=== PATIENT | female | born 1945 | race Caucasian/White ===

== ENCOUNTER 2020-04-19 14:30 | Inpatient (IN) | payer MEDICAID ==
[~2020-04-19] VITALS: Ht 162.6 cm; Wt 88.9 kg
[2020-04-19] MEDS ORDERED: LOSA25TA27 PO (14:37)
--- NOTE | 2020-04-19 14:46 | NUR ---
BIB RA 37 FROM HOME,SLIPPED AND FELL LANDING ON HER RIGHT HIP/THIGH AREA , NO BRUISES NOTED , NO COMPLAINS OF PAIN , ATTACHED TO MONITOR , WILL CONTINUE TO MONITOR
--- NOTE | 2020-04-19 14:47 | NUR ---
BP OF 203 / 89 , DENEIS NAUSEA VOMITING DIZZINESS , WILL NOTIFY DR VAZQUEZ
--- NOTE | 2020-04-19 15:23 | NUR ---
IV STARTED AT R FOREARM # 20 , BLOOD COLLECTED , NOTIFIED MD REGARDING HIGH BP OF 200 / 90 MD AWARE .,
[2020-04-19] MEDS ORDERED: ONDANSETRON HCL/PF 4 MG/2 ML VIAL ONE ×2 (16:15→17:51)
[2020-04-19] MEDS: MORPHINE SULFATE INJ 2 MG/ML DISP.SYRIN IV ONE ×3 (16:16→17:54)
[2020-04-19] MEDS: ONDANSETRON HCL/PF - ER 4 MG/2 ML VIAL IV ONE ×3 (16:16→17:54)
[2020-04-19] MEDS ORDERED: MORPHINE SULFATE INJ 4 MG/ML DISP.SYRIN ONE ×2 (16:16→17:51)
--- NOTE | 2020-04-19 16:16 | NUR ---
CALLED [facility]TH[facility] CONSTRUCTION PROJECT ENGINEER. AWAITING THEIR CALL BACK
[2020-04-19 16:22] LABS: BASOPHILS % (AUTO) 0.4 % (0.0-2.0); EOSINOPHILS % (AUTO) 0.4 % (0.0-6.0); HEMATOCRIT 42 % (33-45); HEMOGLOBIN 13.6 g/dL (11.5-14.8); LYMPHOCYTES # (AUTO) 1.7 /CMM (0.8-4.8); MEAN CORPUSCULAR HGB CONC 32 g/dl (31.0-36.0); MEAN CORPUSCULAR VOLUME 87 fL (82-100); MONOCYTES # (AUTO) 0.8 /CMM (0.1-1.30); MONOCYTES % (AUTO) 6.4 % (2.0-12.0); NEUTROPHILS # (AUTO) 9.5 /CMM (1.8-8.9); NEUTROPHILS % (AUTO) 78.8 % (43.0-81.0); PLATELET COUNT (AUTO) 188 /CMM (150-450); RED BLOOD CELL COUNT(AUTO) 4.84 MIL/uL (4.0-5.2); WHITE BLOOD COUNT (AUTO) 12.1 K/uL (4.3-11.0)
[2020-04-19 16:32] LABS: CALCIUM, SERUM 8.6 mg/dL (8.5-10.1); CARBON DIOXIDE 25 mmol/L (21-32); CHLORIDE 104 mmol/L (98-107); CREATININE 0.7 mg/dL (0.6-1.3); GLUCOSE 128 mg/dL (74-106); POTASSIUM 3.7 mmol/L (3.5-5.1); SODIUM SERUM 138 mmol/L (136-145); UREA NITROGEN, BLOOD 17 mg/dL (7-18)
--- NOTE | 2020-04-19 16:32 | NUR ---
HERNANDEZ VIRUS SWAB DONE AND SENT TO LAB
--- NOTE | 2020-04-19 16:36 | NUR ---
CALLED HOUSE SUP FOR MS BED
[2020-04-19 16:45] LABS: BILIRUBIN,DIRECT 0.1 mg/dL (0.0-0.2); BILIRUBIN,TOTAL 0.4 mg/dL (0.2-1.0)
[2020-04-19 16:46] LABS: ALANINE AMINOTRANSFERASE 24 U/L (12-78); ALBUMIN 4.1 g/dL (3.4-5.0); ALKALINE PHOSPHATASE 108 U/L (46-116); ASPARTATE AMINOTRANSFERASE 27 U/L (15-37); TOTAL PROTEIN, SERUM 8.1 g/dL (6.4-8.2)
--- NOTE | 2020-04-19 16:50 | NUR ---
CALLED A FOLLOW UP FOR FISH ROE PROCESSOR [facility]
--- NOTE | 2020-04-19 17:07 | NUR ---
CALLED A FOLLOW UP FOR IP COUNSEL [facility]TH[facility]
[2020-04-19] MEDS ORDERED: LOSARTAN POTASSIUM 25 MG TABLET ONE (17:10)
--- NOTE | 2020-04-19 17:22 | NUR ---
PT REFUSED MORPHINE AND ZOFRAN ORDERED SHE IS NOT CURRENTLY IN PAIN , REQUEASTING BP MEDS OF COZAR 50MG , MD AWARE , COZER 50MG GIVEN , BP IMPROVED , WILL CONTINUE TO MONITOR
[2020-04-19] MEDS ORDERED: LOSARTAN POTASSIUM 25 MG TABLET PO ONE (17:30)
--- NOTE | 2020-04-19 17:54 | NUR ---
MORPHINE 4MG , ZOFRAN 4MG GIVEN IVP , CC OF 6/10 RIGHT LEG PAIN , VSS , WILL CONT INUE TO MONITOR DR BONNER SPOKE WITH ARLEY SHAFFER , ORTHO ACCEPTED THE PT
--- NOTE | 2020-04-19 18:07 | NUR ---
REPORT GIVEN TO ALEJANDRINA FOR CONTINUITY OF CARE , ALL QUESTIONS ANSWERED , WILL CONTINUE TO MONITOR
[2020-04-19] MEDS ORDERED: MAG HYDROX/AL HYDROX/SIMETH 30 ML UDC PO PRN (18:30)
[2020-04-19] MEDS ORDERED: MAGNESIUM HYDROXIDE 30 ML UDC PO PRN (18:30)
[2020-04-19] MEDS ORDERED: Z GUARD REMEDY 2 OZ OINT TP PRN (18:30)
[2020-04-19] MEDS ORDERED: LOSARTAN POTASSIUM 25 MG TABLET PO SCH (18:30)
[2020-04-19] MEDS ORDERED: ONDANSETRON HCL/PF 4 MG/2 ML VIAL IVP PRN (18:30)
--- NOTE | 2020-04-19 18:30 | NUR ---
DR HUNTLEY AT BEDSIDE , EVALUATING AND ASSESSING THE PT
--- NOTE | 2020-04-19 18:40 | NUR ---
ARLEY SHAFFER AT BEDSIDE ASSESSING THE PT , EXPLAINING PLAN OF CARE
--- NOTE | 2020-04-19 19:30 | NUR ---
ADMISSION NOTE REPORT RECIEVED FROM DYAN AMBROSE. PATIENT BROUGHT TO ROOM BY PLUMBING ENGINEERING DRAFTSPERSON. ADMITTED TO [facility] DR. MCMAHAN FOR RIGHT HIP FRACTURE. PATIENT KITTITIAN SPEAKING TRANSLATION ASSISTED WITH ZURDO VILLEGAS. REPORTS THAT SHE HAD MECHANICAL FALL AND LANDED ON RIGHT HIP. REPORTS PAIN IN HIP IS ONLY PRESENT WHEN MOVING. REVIEWED PAIN MANAGEMENT PLAN WITH PATIENT. PATIENT ORIENTED TO ROOM. CALL LIGHT PLACED WITHIN REACH. SRX2. BED DOWN AND LOCKED. PATIENT WAS SEEN BY ORTHO IN ER. PLAN IS TO HAVE SURGERY ON WEDNESDAY.
--- NOTE | 2020-04-19 19:33 | NUR ---
PT TRANSFERED TO M/S BED VIA [facility]. PT STABLE.
[2020-04-19 20:00] VITALS: BP 125/54
[2020-04-19] MEDS ORDERED: LOSA1TAB36 PO (21:25)
[2020-04-19] MEDS ORDERED: ASPI-605 PO (21:25)
[2020-04-19] MEDS ORDERED: AMLO5TAB4 PO (21:25)
--- NOTE | 2020-04-19 21:36 | NUR ---
SPOKE WITH PATIENTS LYDIA AND SHARI FLOREZ AND SHE WAS ABLE TO CLARIFY PATIENTS HOME MEDICATIONS. MED REC UPDATED. DROPPED OFF PATIENT MEDICAITONS PLACED IN PHARMACY BAG AND SENT TO PHARMACY.
--- NOTE | 2020-04-19 21:40 | NUR ---
ADMISSION ASSESSMENT PERFORMED. TRANSLATION ASSISTED BY ZURDO VILLEGAS. ALSO SPOKE TO PATIENTS DAUGHTER LAUREN WITH DETAILS WITH PATIENTS PERMISSION.
[2020-04-19] MEDS: ZOLPIDEM TARTRATE 5 MG TABLET PO PRN (21:55)
--- NOTE | 2020-04-20 02:00 | NUR ---
CONSENT FOR SURGERY SIGNED. CONSENT FOR ANESTHESIA SIGNED, CONSENT FOR BLOOD SIGNED. PT OFFERED PROFESSIONAL TRANSLATION VIA TELEPHONE PRODUCTION CONTROL SUPERVISOR BUT REFUSED. TRANSLATION PROVIDED BY ZURDO VILLEGAS.
[2020-04-20] MEDS: MORPHINE SULFATE INJ 2 MG/ML DISP.SYRIN IV PRN ×2 (02:07→08:42)
--- NOTE | 2020-04-20 06:43 | NUR ---
RN PM CLOSING NOTE. PATIENT IN BED A/OX4 ANGUILLAN SPEAKING ONLY, REPORTS PAIN TO RIGHT HIP BUT ONLY UPON MOVEMENT. PATIENT ABLE TO MOVE IN BED INDEPENDENTLY SCD ARE ON BLE. BED DOWN CALL LIGHT IN REACH. SRX2. WILL ENDORSE TO ONCOMING SHIFT.
[2020-04-20 07:11] LABS: BASOPHILS % (AUTO) 0.4 % (0.0-2.0); EOSINOPHILS % (AUTO) 0.3 % (0.0-6.0); HEMATOCRIT 39 % (33-45); HEMOGLOBIN 12.7 g/dL (11.5-14.8); LYMPHOCYTES # (AUTO) 1.7 /CMM (0.8-4.8); LYMPHOCYTES % (AUTO) 17.1 % (20.0-44.0); MEAN CORPUSCULAR HGB CONC 32 g/dl (31.0-36.0); MEAN CORPUSCULAR VOLUME 87 fL (82-100); MONOCYTES % (AUTO) 10.4 % (2.0-12.0); NEUTROPHILS # (AUTO) 7.1 /CMM (1.8-8.9); NEUTROPHILS % (AUTO) 71.8 % (43.0-81.0); PLATELET COUNT (AUTO) 170 /CMM (150-450); RED BLOOD CELL COUNT(AUTO) 4.52 MIL/uL (4.0-5.2); WHITE BLOOD COUNT (AUTO) 9.9 K/uL (4.3-11.0)
[2020-04-20 07:37] LABS: CALCIUM, SERUM 8.3 mg/dL (8.5-10.1); CREATININE 0.8 mg/dL (0.6-1.3); MAGNESIUM 2.3 mg/dL (1.8-2.4); PHOSPHORUS 3.9 mg/dL (2.5-4.9); POTASSIUM 3.7 mmol/L (3.5-5.1)
[2020-04-20 08:00] VITALS: BP 164/68
[2020-04-20] MEDS: LOSARTAN/HCTZ 50-12.5MG/ 1 EA TABLET PO SCH ×2 (08:42→20:52)
[2020-04-20] MEDS: AMLODIPINE BESYLATE 5 MG TABLET PO SCH (08:43)
[2020-04-20 16:00] VITALS: BP 114/50
--- NOTE | 2020-04-20 18:30 | NUR ---
MS RN NOTES PATIENT IN BED RESTING NO SOB OR ACUTE DISTRESS NOTED. ALL DUE MEDICATIONS ADMINISTERED. ALL NEEDS MET. PATIENTS PAIN CONTROLLED WITH MEDICATIONS. NO ACUTE CHANGES NOTED DURING AM SHIFT. WILL ENDORSE CARE TO PM SHIFT.
--- NOTE | 2020-04-20 19:30 | NUR ---
ms damian initial notes received report from am nurse and seen pt in bed awake on semi fowlers position with side rails x2 up. Denies any pain or any discomfort. pt also aware of her surgery karina but she requested to OR personnel to call her daughter before the procedure started . pt also requested to have sleep medication tonight. kept her warm and comfortable at all times. will continue monitoring place call light at reach.
[2020-04-20 20:00] VITALS: BP 142/69
[2020-04-20] MEDS: ASPIRIN EC 81 MG TABLET.DR PO SCH (21:04)
[2020-04-20] MEDS: ZOLPIDEM TARTRATE 5 MG TABLET PO PRN (21:17)
--- NOTE | 2020-04-20 21:52 | NUR ---
ms power plant technician notes routine meds given as well as her sleep medication as requested by the pt earlier. educate for possible side effect. safety precaution applied. kept her warm and comfortable at all times. will continue monitoring. call light at reach.
[2020-04-21] VITALS (11 sets, daily range): BP systolic 112–137; BP diastolic 52–82
[2020-04-21 06:47] LABS: BASOPHILS % (AUTO) 0.4 % (0.0-2.0); EOSINOPHILS % (AUTO) 1.1 % (0.0-6.0); HEMATOCRIT 40 % (33-45); HEMOGLOBIN 12.9 g/dL (11.5-14.8); LYMPHOCYTES # (AUTO) 1.7 /CMM (0.8-4.8); LYMPHOCYTES % (AUTO) 18.7 % (20.0-44.0); MEAN CORPUSCULAR HGB CONC 32 g/dl (31.0-36.0); MEAN CORPUSCULAR VOLUME 87 fL (82-100); MONOCYTES # (AUTO) 1.1 /CMM (0.1-1.30); MONOCYTES % (AUTO) 11.8 % (2.0-12.0); NEUTROPHILS # (AUTO) 6.3 /CMM (1.8-8.9); PLATELET COUNT (AUTO) 157 /CMM (150-450); RED BLOOD CELL COUNT(AUTO) 4.61 MIL/uL (4.0-5.2); WHITE BLOOD COUNT (AUTO) 9.3 K/uL (4.3-11.0)
[2020-04-21 07:13] LABS: CALCIUM, SERUM 8.8 mg/dL (8.5-10.1); CREATININE 0.7 mg/dL (0.6-1.3); POTASSIUM 3.3 mmol/L (3.5-5.1)
--- NOTE | 2020-04-21 07:26 | NUR ---
ms assembly department supervisor closing notes pt remains sleeping , breathing even and non-labored, not in any discomfort. all due meds given and all needs met. stable ge the night and slept well. kept her warm and comfortable at all times. bed in low and lock in position with side rails x2 up . place call light at reach. Endorse to am nurse Mayelin for continuity of care.
[2020-04-21] MEDS ORDERED: MIDAZOLAM HCL 2 MG/2ML VIAL ONE (07:53)
[2020-04-21] MEDS ORDERED: FENTANYL PF 100MCG/2ML AMPUL ONE (07:53)
[2020-04-21] MEDS ORDERED: BUPIVACAINE 0.5 % PF 150 MG/30 ML VIAL ONE (07:56)
[2020-04-21] MEDS ORDERED: BACITRACIN 50000 UNITS/VIAL ONE (07:56)
--- NOTE | 2020-04-21 08:14 | NUR ---
MS RN NOTES PATIENT TRANSFERRED TO OR FOR SCHEDULED SURGERY.
[2020-04-21] MEDS ORDERED: POTASSIUM CL. PREMIX PERIPHER. 50 ML IV SCH (08:30)
[2020-04-21] MEDS: LOSARTAN/HCTZ 50-12.5MG/ 1 EA TABLET PO SCH ×2 (09:00→21:00)
[2020-04-21] MEDS: AMLODIPINE BESYLATE 5 MG TABLET PO SCH (09:00)
[2020-04-21] MEDS ORDERED: POTASSIUM CHLORIDE 10 MEQ TABLET.SA PO ONE (12:30)
[2020-04-21] MEDS: ANCEF 1 GM/50 ML D5W IV SCH ×2 (16:33)
--- NOTE | 2020-04-21 19:32 | NUR ---
ms rn opening note received patient in bed. a/ox3. Japanese speaking , able to make basic needs known. tolerating room air, respirations are even and unlabored. no s/s sob noted. no c/o pain at this time. iv access in RFA#20 patent and saline locked. bed is low and locked, hob elevated in semi to high fowlers, side rials up x2. call light within reach. will continue to monitor.
--- NOTE | 2020-04-21 19:35 | NUR ---
MS RN NOTES PATIENT IN BED RESTING NO SOB OR ACUTE DISTRESS NOTED. NO ACUTE CHANGES NOTED. ALL DUE MEDICATIONS ADMINISTERED. PAIN MANAGED WITH MEDICATIONS. PATIENT HAD PT EVALUATION AFTER SURGERY. TOLERATED WELL. ALL NEEDS MET. ENDORSED CARE TO PM SHIFT.
[2020-04-21] MEDS: ASPIRIN EC 81 MG TABLET.DR PO SCH (21:08)
[2020-04-21] MEDS: HYDROCODONE/APAP 5/325MG 1 EACH TABLET PO PRN (21:09)
--- NOTE | 2020-04-21 21:09 | NUR ---
ms rn ote administered prn norco 5/325 for pain 10 when patient moves. will continue to monitor.
[2020-04-22] MEDS: ANCEF 1 GM/50 ML D5W IV SCH ×2 (00:08)
--- NOTE | 2020-04-22 07:08 | NUR ---
ms rn closing note patient in bed. a/ox3. tolerating room air, respirations are even and unlabored. no sob noted. managed pain with norco 5/325 but states she is in pain right now. iv access maintained in RFA#20 patent and saline locked. bed remains low and locked, hob elevated in semi to high fowlers, side rials up x2. call light within reach. will endorse to next shift
[2020-04-22 07:20] LABS: BASOPHILS % (AUTO) 0.1 % (0.0-2.0); HEMATOCRIT 35 % (33-45); HEMOGLOBIN 11.1 g/dL (11.5-14.8); LYMPHOCYTES # (AUTO) 1.5 /CMM (0.8-4.8); LYMPHOCYTES % (AUTO) 9.6 % (20.0-44.0); MEAN CORPUSCULAR HGB CONC 32 g/dl (31.0-36.0); MEAN CORPUSCULAR VOLUME 87 fL (82-100); MONOCYTES # (AUTO) 1.4 /CMM (0.1-1.30); MONOCYTES % (AUTO) 9.1 % (2.0-12.0); NEUTROPHILS # (AUTO) 12.6 /CMM (1.8-8.9); NEUTROPHILS % (AUTO) 81.2 % (43.0-81.0); PLATELET COUNT (AUTO) 162 /CMM (150-450); RED BLOOD CELL COUNT(AUTO) 3.99 MIL/uL (4.0-5.2); WHITE BLOOD COUNT (AUTO) 15.5 K/uL (4.3-11.0)
--- NOTE | 2020-04-22 07:30 | NUR ---
RN OPEN NOTES PATIENT IS A/O X 4. PATIENT IS CALM AND COOPERATIVE WITH NO SIGNS OF DISTRESS IN ROOM AIR. IN R FA #20G SL INTACT. PILLOW UNDER RIGHT LEG FOR COMFORT. PATIENT C/O PAIN GAVE PAIN MEDICATION. BED IS IN LOW POSITION AND LOCKED WITH SIDE RAILS UP X 2 FOR SAFETY. CALL LIGHT WITHIN REACH. WILL CONTINUE TO MONITOR.
[2020-04-22 07:33] LABS: CALCIUM, SERUM 8.7 mg/dL (8.5-10.1); POTASSIUM 4.2 mmol/L (3.5-5.1)
[2020-04-22 08:00] VITALS: BP 112/54
[2020-04-22] MEDS: AMLODIPINE BESYLATE 5 MG TABLET PO SCH (09:00)
[2020-04-22] MEDS: HYDROCODONE/APAP 5/325MG 1 EACH TABLET PO PRN ×3 (09:19→21:06)
[2020-04-22] MEDS: LOSARTAN/HCTZ 50-12.5MG/ 1 EA TABLET PO SCH ×2 (09:22→21:00)
[2020-04-22] MEDS: ENOXAPARIN SODIUM 40 MG/0.4 ML DISP.SYRIN SQ SCH (09:28)
[2020-04-22 16:00] VITALS: BP 110/50
--- NOTE | 2020-04-22 19:30 | NUR ---
MS RN OPEN NOTES PATIENT IS LAYING IN BED. A/O X4. ON RA, NO SOB/ ACUTE RESPIRATORY DISTRESS NOTED. BED IS IN LOWEST LOCKED POSITION WITH SIDE RAILS UP X2, SEMI FOWLERS. CALL LIGHT IS WITHIN REACH. WILL CONTINUE TO MONITOR.
--- NOTE | 2020-04-22 19:32 | NUR ---
RN CLOSING NOTES PATIENT IS A/O X 4. PATIENT IS CALM AND COOPERATIVE WITH NO SIGNS OF DISTRESS IN ROOM AIR. IN R FA #20G SL INTACT. PILLOW UNDER RIGHT LEG FOR COMFORT. PATIENT REMAINED STABLE THROUGH OUT SHIFT. PATIENT KEPT CLEAN AND DRY. ALL NEEDS, CARE, TREATMENT AND MEDICATIONS ADMINISTERED ANTICIPATED PER ORDER. BED IS IN LOW POSITION AND LOCKED WITH SIDE RAILS UP X 2 FOR SAFETY. CALL LIGHT WITHIN REACH. WILL ENDORSE TO THE NEXT NURSE SHIFT.
[2020-04-22 20:00] VITALS: BP 118/55
[2020-04-22] MEDS: ASPIRIN EC 81 MG TABLET.DR PO SCH (21:05)
--- NOTE | 2020-04-23 06:22 | NUR ---
MS RN CLOSE NOTES PATIENT IS LAYING IN BED. A/O X4. ON RA, NO SOB/ ACUTE RESPIRATORY DISTRESS NOTED. IV ON R HAND #20G IS PATENT AND INTACT. APPEARS COMFORTABLE/ NO COMPLAINTS OF PAIN AT THE MOMENT. BED IS IN LOWEST LOCKED POSITION WITH SIDE RAILS UP X3, SEMI FOWLERS. CALL LIGHT IS WITHIN REACH. WILL ENDORSE TO AM NURSE.
--- NOTE | 2020-04-23 07:32 | NUR ---
MS/RN Opening note Patient received from cnc machinist 2nd shift. A/O X4, Bhutanese speaking only, SPINNING MULE OPERATOR at bedside providing translation. Denies any pain at this time, only complaint being unable to sleep last night due to television being on from other patient in the room. Will speak with charge nurse to try and to arrange room switch. Safety measures in place, call light within reach. Will continue to monitor and ensure safety.
[2020-04-23 08:00] VITALS: BP 128/56
[2020-04-23] MEDS: AMLODIPINE BESYLATE 5 MG TABLET PO SCH (08:24)
[2020-04-23] MEDS: HYDROCODONE/APAP 5/325MG 1 EACH TABLET PO PRN ×2 (08:24→21:19)
[2020-04-23] MEDS: LOSARTAN/HCTZ 50-12.5MG/ 1 EA TABLET PO SCH ×2 (08:24→21:00)
[2020-04-23] MEDS: ENOXAPARIN SODIUM 40 MG/0.4 ML DISP.SYRIN SQ SCH (08:28)
--- NOTE | 2020-04-23 09:00 | NUR ---
MS/RN S/B Ortho Seen by ortho - dressing changed.
--- NOTE | 2020-04-23 10:04 | NUR ---
MS/RN S/B Deo Arias BACKGROUND CHECK COORDINATOR Seen by BACKGROUND CHECK COORDINATOR - continue to work with physical therapy, discharge planning for tomorrow to home.
--- NOTE | 2020-04-23 12:38 | NUR ---
MS/RN Constipation Patient complaining of constipation since surgery, last BM being 04/20. Warm prune juice given.
[2020-04-23 14:36] LABS: BASOPHILS # (AUTO) 0.1 /CMM (0.0-0.2); BASOPHILS % (AUTO) 0.7 % (0.0-2.0); EOSINOPHILS % (AUTO) 1.2 % (0.0-6.0); HEMATOCRIT 32 % (33-45); HEMOGLOBIN 10.3 g/dL (11.5-14.8); LYMPHOCYTES # (AUTO) 1.4 /CMM (0.8-4.8); LYMPHOCYTES % (AUTO) 13.6 % (20.0-44.0); MEAN CORPUSCULAR HGB CONC 32 g/dl (31.0-36.0); MEAN CORPUSCULAR VOLUME 87 fL (82-100); MONOCYTES # (AUTO) 1.1 /CMM (0.1-1.30); MONOCYTES % (AUTO) 10.1 % (2.0-12.0); NEUTROPHILS # (AUTO) 7.8 /CMM (1.8-8.9); NEUTROPHILS % (AUTO) 74.4 % (43.0-81.0); PLATELET COUNT (AUTO) 168 /CMM (150-450); RED BLOOD CELL COUNT(AUTO) 3.63 MIL/uL (4.0-5.2); WHITE BLOOD COUNT (AUTO) 10.5 K/uL (4.3-11.0)
[2020-04-23 14:57] LABS: CALCIUM, SERUM 8.2 mg/dL (8.5-10.1); POTASSIUM 3.7 mmol/L (3.5-5.1)
[2020-04-23 15:58] VITALS: BP 130/50
[2020-04-23 16:00] VITALS: BP 130/50
--- NOTE | 2020-04-23 18:23 | NUR ---
MS/RN End note Patient remains in stable condition. Discharge planning for tomorrow, home with home health. bean roaster coordinating with patient's daughter to ensure all needs are meet and to ensure safe discharge. Prune juice given as no bowel movement since admission with good result. Dressing dry and intact, no drainage noted, continue to deny pain. Will endore to cardiology technologist.
--- NOTE | 2020-04-23 19:29 | NUR ---
MS RN OPENING NOTES PATIENT AWAKE IN BED. A/OX4. PRIMARY LANGUAGE MEXICAN. ON RA. NO C/O SOB OR PAIN. PATIENT C/O SLIGHT NAUSEA. PRN ZOFRAN 4MG GIVEN AT 1915 PER PATIENT'S REQUEST. IV PRESENT ON RIGHT HAND, SIZE 20, INTACT & PATENT, HEP LOCKED. RIGHT HIP DRESSING DRY AND INTACT. SAFETY MEASURES IN PLACE AND PATIENT'S NEEDS MET. BED LOCKED, HOB ELEVATED, SIDE RAILS X2, CALL LIGHT WITHIN REACH. WILL CONTINUE TO MONITOR.
[2020-04-23 20:00] VITALS: BP 139/51
[2020-04-23 20:30] VITALS: BP 139/51
[2020-04-23] MEDS: ACETAMINOPHEN 325 MG TABLET PO PRN (20:45)
--- NOTE | 2020-04-23 20:45 | NUR ---
MS RN NOTES PATIENT'S TEMPERATURE 99.8. COOLING MEASURES PROVIDED AND PRN TYLENOL 650 MG PO GIVEN. WILL CONTINUE TO MONITOR.
[2020-04-23] MEDS: ASPIRIN EC 81 MG TABLET.DR PO SCH (21:19)
--- NOTE | 2020-04-23 23:00 | NUR ---
MS RN NOTES PATIENT'S TEMP 99.1
--- NOTE | 2020-04-24 07:41 | NUR ---
MS RN CLOSING NOTES PATIENT AWAKE IN BED. A/OX4. STABLE ON RA. NO C/O SOB OR PAIN. IV PRESENT ON RIGHT HAND, SIZE 20, INTACT & PATENT, HEP LOCKED. RIGHT HIP DRESSING DRY AND INTACT. SAFETY MEASURES IN PLACE AND PATIENT'S NEEDS MET. BED LOCKED, HOB ELEVATED, SIDE RAILS X2, CALL LIGHT WITHIN REACH. ENDORSED TO DAY SHIFT RN PLAN OF CARE.
--- NOTE | 2020-04-24 07:48 | NUR ---
MS RN OPENING NOTES PATIENT AWAKE IN BED ECUADOREAN SPEAKING. A/OX4. STABLE ON RA. NO C/O SOB OR PAIN. IV PRESENT ON RIGHT HAND, SIZE 20, INTACT & PATENT, SL. RIGHT HIP DRESSING DRY AND INTACT. SAFETY MEASURES IN PLACE AND PATIENT'S NEEDS MET. BED LOCKED, HOB ELEVATED, SIDE RAILS X2, CALL LIGHT WITHIN REACH. ENDORSED TO DAY SHIFT RN PLAN OF CARE.
[2020-04-24 08:00] VITALS: BP 147/66
[2020-04-24] MEDS: MORPHINE SULFATE INJ 2 MG/ML DISP.SYRIN IV PRN (08:20)
[2020-04-24] MEDS: LOSARTAN/HCTZ 50-12.5MG/ 1 EA TABLET PO SCH ×2 (08:50→21:00)
[2020-04-24] MEDS: AMLODIPINE BESYLATE 5 MG TABLET PO SCH (08:50)
[2020-04-24] MEDS: ENOXAPARIN SODIUM 40 MG/0.4 ML DISP.SYRIN SQ SCH (09:00)
[2020-04-24 09:31] LABS: CALCIUM, SERUM 8.8 mg/dL (8.5-10.1); CREATININE 0.7 mg/dL (0.6-1.3); POTASSIUM 3.7 mmol/L (3.5-5.1)
[2020-04-24 09:33] LABS: BASOPHILS # (AUTO) 0.1 /CMM (0.0-0.2); BASOPHILS % (AUTO) 0.6 % (0.0-2.0); EOSINOPHILS % (AUTO) 3.1 % (0.0-6.0); HEMATOCRIT 32 % (33-45); HEMOGLOBIN 10.4 g/dL (11.5-14.8); LYMPHOCYTES % (AUTO) 22.1 % (20.0-44.0); MEAN CORPUSCULAR HGB CONC 33 g/dl (31.0-36.0); MEAN CORPUSCULAR VOLUME 87 fL (82-100); MONOCYTES % (AUTO) 11.5 % (2.0-12.0); NEUTROPHILS # (AUTO) 5.6 /CMM (1.8-8.9); NEUTROPHILS % (AUTO) 62.7 % (43.0-81.0); PLATELET COUNT (AUTO) 179 /CMM (150-450); RED BLOOD CELL COUNT(AUTO) 3.64 MIL/uL (4.0-5.2); WHITE BLOOD COUNT (AUTO) 8.9 K/uL (4.3-11.0)
[2020-04-24] MEDS ORDERED: ONDA4TAB5 PO (11:18)
[2020-04-24] MEDS ORDERED: HYDR-4384 PO (11:18)
[2020-04-24] MEDS ORDERED: ASPI-869 PO ×3 (11:18→11:39)
[2020-04-24] MEDS: ACETAMINOPHEN 325 MG TABLET PO PRN (13:30)
--- NOTE | 2020-04-24 13:30 | NUR ---
MS/ RN NOTES PATIENT'S TEMPERATURE 100.3. COOLING MEASURES PROVIDED AND PRN TYLENOL 650 MG PO GIVEN. WILL CONTINUE TO MONITOR.
[2020-04-24 16:00] VITALS: BP 136/62
--- NOTE | 2020-04-24 16:30 | NUR ---
MS RN NOTES PATIENT'S RE CHECK TEMPERATURE 97.8.TYLENOL 650 MG EFFECTIVE. WILL CONTINUE TO MONITOR.
--- NOTE | 2020-04-24 18:57 | NUR ---
MS RN CLOSING NOTES PATIENT AWAKE IN BED. A/OX4. STABLE ON RA. NO C/O SOB OR PAIN. IV PRESENT ON RIGHT HAND, SIZE 20, INTACT & PATENT, HEP LOCKED. RIGHT HIP DRESSING DRY AND INTACT.MEDICATED WITH TYLENOL 650 ORDER FOR TEM 100.3 MEDS EFFECTIVE TEMP ESSIE TO 97.8. SAFETY MEASURES IN PLACE AND PATIENT'S NEEDS MET. BED LOCKED, HOB ELEVATED, SIDE RAILS X2, CALL LIGHT WITHIN REACH. ENDORSED TO DAY SHIFT RN PLAN OF CARE.
--- NOTE | 2020-04-24 19:39 | NUR ---
MS RN OPENING NOTES PATIENT AWAKE IN BED. A/OX4. ON RA. NO C/O SOB OR PAIN. IV PRESENT ON RIGHT HAND, SIZE 20, INTACT & PATENT, HEP LOCKED. RIGHT HIP DRESSING DRY AND INTACT. SAFETY MEASURES IN PLACE AND PATIENT'S NEEDS MET. BED LOCKED, HOB ELEVATED, SIDE RAILS X2, CALL LIGHT WITHIN REACH. WILL CONTINUE TO MONITOR
[2020-04-24 20:00] VITALS: BP 133/57
[2020-04-24] MEDS: ASPIRIN EC 81 MG TABLET.DR PO SCH (21:15)
[2020-04-24] MEDS: HYDROCODONE/APAP 5/325MG 1 EACH TABLET PO PRN (21:15)
[2020-04-24] MEDS: ZOLPIDEM TARTRATE 5 MG TABLET PO PRN (22:30)
--- NOTE | 2020-04-25 06:33 | NUR ---
MS RN CLOSING NOTES PATIENT AWAKE IN BED. A/OX4. STABLE ON RA. NO C/O SOB OR PAIN. IV PRESENT ON RIGHT HAND, SIZE 20, INTACT & PATENT, HEP LOCKED. RIGHT HIP DRESSING DRY AND INTACT. SAFETY MEASURES IN PLACE AND PATIENT'S NEEDS MET. BED LOCKED, HOB ELEVATED, SIDE RAILS X2, CALL LIGHT WITHIN REACH. WILL ENDORSE TO DAY SHIFT RN PLAN OF CARE.
[2020-04-25 08:00] VITALS: BP 140/73
--- NOTE | 2020-04-25 08:00 | NUR ---
RN NOTES RECEIVED PATIENT IN THE BED A/O X3, LATVIAN SPEAKER. PATIENT HAS NO ACUTE RESPIRATORY DISTRESS, REFUSED PAIN AT THIS TIME. DRESSING INTACT ON LEFT HIP. ADMINISTERED SCHEDULED MEDICATION, V/S WNL. CALL LIGHT WITHIN TO REACH. PATIENT WILL DISCHARGE HOME TODAY, AFTER SEEING PT. CONTINUED MONITORING.
[2020-04-25] MEDS: AMLODIPINE BESYLATE 5 MG TABLET PO SCH (09:29)
[2020-04-25 09:30] VITALS: BP 140/73
[2020-04-25] MEDS: LOSARTAN/HCTZ 50-12.5MG/ 1 EA TABLET PO SCH (09:30)
[2020-04-25] MEDS: ENOXAPARIN SODIUM 40 MG/0.4 ML DISP.SYRIN SQ SCH (09:35)
--- NOTE | 2020-04-25 11:00 | NUR ---
rn notes patient will discharge home with home health.
--- NOTE | 2020-04-25 12:00 | NUR ---
Social service consult requested by Deo in regards to pt needing a DMV handicap placard form signed. Per MD notes, pt is a 75-year-old female brought in by EMS after mechanical slip and fall onto her right hip/thigh. SURVEY SUPERINTENDENT conducted chart review and met with the pt bedside. Pt is predominantly Kiswahili speaking. BAKARI Amador assisted SW in translation. Pt is alert and oriented x 4 with appropriate affect. Pt gave SW the DMV form and requested it needing a signature. The form had been completed by pt's daughter David. SURVEY SUPERINTENDENT went over the form with the pt and informed her the doctor needs to sign the form. SURVEY SUPERINTENDENT contacted pt's doctor URGENT CARE TECHNICIAN Deo and informed him that he needs to sign the form. Per Deo he will come by pt's room and sign the form. SURVEY SUPERINTENDENT updated pt with aforementioned information.
[2020-04-25] MEDS: HYDROCODONE/APAP 5/325MG 1 EACH TABLET PO PRN (13:37)
--- NOTE | 2020-04-25 13:37 | NUR ---
rn notes patient was complaining of pain on left hip 03/06 per patient request, v/s taken bp127/68,p66, r-18.
--- NOTE | 2020-04-25 15:47 | NUR ---
TUMBLER TENDER NOTES PATIENT DISCHARGE HOME WITH HOME HEALTH AT THIS TIME. PATIENT A/O X3, PARAGUAYAN SPEAKER, V/S WNL, REFUSED PAIN, DRESSING INTACT . MED RECONCILIATION AND DISCHARGE ORDER REVIEWED AND EXPLAINED TO THE PATIENT AND DAUGHTER. PATIENT VERBALIZED UNDERSTANDING. PATIENT SIGN PAPERWORK, ALL PAPERWORK WITH PRESCRIPTION HANDED TO THE PATIENT. PATIENT WILL FOLLOW SURGEON ON ONE WEEK. BELONGING WITH THE PATIENT. ESCORTED PATIENT TO THE LOBBY FOR SAFETY. PATIENT PETS SALESPERSON BY DAUGHTER NAME FIGUEROA PHONE # [phone].
== END 2020-04-25 15:45 | disposition home health service (06) | DRG 308 ==
LOC: ER 14:31 → MED 17:41
PROVIDERS: ADMIT Family Medicine; ATTEND Nurse Practitioner Acute Care
PROC: 0QS606Z Reposition Right Upper Femur with Intramedullary Internal Fixation Device, Open Approach (ICD-10-PCS; principal; 2020-04-21)
DX: S72.141A Displaced intertrochanteric fracture of right femur, initial encounter for closed fracture (principal); Y92.009 Unspecified place in unspecified non-institutional (private) residence as the place of occurrence of the external cause; E87.6 Hypokalemia; R73.9 Hyperglycemia, unspecified; W01.0XXA Fall on same level from slipping, tripping and stumbling without subsequent striking against object, initial encounter; Z79.82 Long term (current) use of aspirin; Z87.891 Personal history of nicotine dependence; Z82.49 Family history of ischemic heart disease and other diseases of the circulatory system; Z79.899 Other long term (current) drug therapy; D72.829 Elevated white blood cell count, unspecified; E66.9 Obesity, unspecified; I10 Essential (primary) hypertension; Z68.33 Body mass index [BMI] 33.0-33.9, adult
CPT/HCPCS: 36415; 71045-TC; 73501; 73502; 73552; 80048-TC; 80061-TC; 80076-TC; 83735-TC; 84100-TC; 84484-TC; 85025-TC; 85730-TC; 86850-TC; 87081-TC; 93307-TC; 97110-TC; 97116-TC; 97530-TC; 97535-TC; A6209; A6407; C1713; G0378; J0690; J1650; J2250; J2270; J2405; J3010; J3480; J3490; J7050; J7060

== ENCOUNTER 2025-04-07 13:31 | Inpatient (IN) | payer MEDICAID ==
[~2025-04-07] VITALS: Ht 154.9 cm; Wt 91.6 kg
[~2025-04-07 13:31] MED LIST: AMLO5TAB4 PO; ASPI-869 PO; HYDR-4384 PO; LOSA1TAB36 PO; ONDA4TAB5 PO
[2025-04-07 13:57] LABS: PLATELET COUNT (AUTO) 155 K/uL (150-450); RED BLOOD CELL COUNT(AUTO) 4.52 MIL/uL (4.0-5.2); RED CELL DISTRIBUTION WIDTH 15.3 % (11.5-15.0); WHITE BLOOD COUNT (AUTO) 12.0 K/uL (4.3-11.0)
[2025-04-07 14:06] LABS: CALCIUM, SERUM 9.0 mg/dL (8.5-10.1); CREATININE 1.0 mg/dL (0.6-1.3); SODIUM SERUM 141 mmol/L (136-145); UREA NITROGEN, BLOOD 27 mg/dL (7-18)
[2025-04-07 14:11] LABS: INR 1.06 (0.91-1.10)
[2025-04-07 14:20] LABS: ASPARTATE AMINOTRANSFERASE 54 U/L (15-37); NT-PRO BNP 461 pg/mL (0-125); TOTAL PROTEIN, SERUM 7.5 g/dL (6.4-8.2)
[2025-04-07] MEDS: IV NS 0.9% 500 ML BAG IV ONE (14:23)
[2025-04-07] MEDS ORDERED: ASPIRIN 325 MG TABLET ONE (17:51)
[2025-04-07] MEDS: ASPIRIN EC 325 MG TABLET.DR PO ONE (17:54)
[2025-04-07] MEDS ORDERED: MORPHINE SULFATE INJ 2 MG/ML DISP.SYRIN IV PRN (18:00)
[2025-04-07] MEDS ORDERED: ONDANSETRON HCL/PF 4 MG/2 ML VIAL IVP PRN (18:00)
[2025-04-07] MEDS ORDERED: hydrALAZINE HCL IV 20 MG VIAL IV PRN (18:00)
[2025-04-07] MEDS ORDERED: ACETAMINOPHEN 325 MG TABLET PO PRN (18:00)
[2025-04-07] MEDS ORDERED: [UNRECOGNIZED DRUG - OTHER] PO (18:03)
[2025-04-07] MEDS ORDERED: TELM80TA2 PO (18:03)
[2025-04-07] MEDS ORDERED: OMEP20CA15 PO (18:03)
[2025-04-07] MEDS ORDERED: HYDR12.55 PO (18:03)
[2025-04-07 18:20] LABS: LDL 126 mg/dL (0-99)
[2025-04-07 20:00] VITALS: BP 144/63; TEMP 98.4; O2SAT 99
[2025-04-07] MEDS: HYDROCHLOROTHIAZIDE 25 MG TABLET PO SCH (21:33)
[2025-04-07] MEDS: LOSARTAN POTASSIUM 50 MG TABLET PO SCH (21:34)
[2025-04-07] MEDS: HEPARIN SODIUM, PORCINE 5000 UNITS/1 ML VIAL SQ SCH (21:35)
[2025-04-08] VITALS (8 sets, daily range): BP systolic 111–158; BP diastolic 58–71; TEMP 97.7–98.6; O2SAT 96–100
[2025-04-08 07:07] LABS: PLATELET COUNT (AUTO) 117 K/uL (150-450); RED BLOOD CELL COUNT(AUTO) 4.11 MIL/uL (4.0-5.2); RED CELL DISTRIBUTION WIDTH 14.8 % (11.5-15.0); WHITE BLOOD COUNT (AUTO) 7.4 K/uL (4.3-11.0)
[2025-04-08 08:29] LABS: ASPARTATE AMINOTRANSFERASE 48.0 U/L (15-37); CALCIUM, SERUM 8.8 mg/dL (8.5-10.1); CREATININE 0.8 mg/dL (0.6-1.3); PHOSPHORUS 4.3 mg/dL (2.5-4.9); SODIUM SERUM 142.0 mmol/L (136-145); TOTAL PROTEIN, SERUM 6.6 g/dL (6.4-8.2); UREA NITROGEN, BLOOD 26.0 mg/dL (7-18)
[2025-04-08] MEDS: AMLODIPINE BESYLATE 5 MG TABLET PO SCH (08:29)
[2025-04-08] MEDS: ASPIRIN EC 325 MG TABLET.DR PO SCH (08:39)
[2025-04-08] MEDS ORDERED: PANTOPRAZOLE 40 MG TABLET.DR PO PRN (10:00)
[2025-04-08] MEDS: HYDROCHLOROTHIAZIDE 25 MG TABLET PO SCH (10:19)
[2025-04-08] MEDS ORDERED: LOSARTAN POTASSIUM 50 MG TABLET PO SCH (18:00)
== END 2025-04-08 11:54 | disposition home or self-care (01) | DRG 48 ==
LOC: ER 13:33 → TELE1 18:48
PROVIDERS: ADMIT Internal Medicine; ATTEND Internal Medicine
DX: G90.89 Other disorders of autonomic nervous system (principal); I21.A1 Myocardial infarction type 2; I95.9 Hypotension, unspecified; E86.0 Dehydration; E78.5 Hyperlipidemia, unspecified; I10 Essential (primary) hypertension; Z82.49 Family history of ischemic heart disease and other diseases of the circulatory system
CPT/HCPCS: 36415; 71045-TC; 80048-TC; 80053-TC; 80061-TC; 80076-TC; 82962-TC; 83735-TC; 83880; 84100-TC; 84484-TC; 85025-TC; 85730-TC; 86850-TC; 93307-TC; G0378; J1644; J7040

== ENCOUNTER 2025-05-14 18:15 | Emergency (ER) | payer MEDICAID ==
[~2025-05-14] VITALS: Ht 157.5 cm; Wt 90.3 kg
[~2025-05-14 18:15] MED LIST changes: -AMLO5TAB4 PO; -ASPI-869 PO; -HYDR-4384 PO; +HYDR12.55 PO; -LOSA1TAB36 PO; +OMEP20CA15 PO; -ONDA4TAB5 PO; +TELM80TA2 PO; +[UNRECOGNIZED DRUG - OTHER] PO
[2025-05-14 19:08] LABS: PLATELET COUNT (AUTO) 157 K/uL (150-450); RED BLOOD CELL COUNT(AUTO) 5.20 MIL/uL (4.0-5.2); RED CELL DISTRIBUTION WIDTH 15.3 % (11.5-15.0); WHITE BLOOD COUNT (AUTO) 11.6 K/uL (4.3-11.0)
[2025-05-14 19:21] LABS: CALCIUM, SERUM 9.2 mg/dL (8.5-10.1); CREATININE 0.9 mg/dL (0.6-1.3); SODIUM SERUM 140.0 mmol/L (136-145); UREA NITROGEN, BLOOD 23.0 mg/dL (7-18)
[2025-05-14 19:22] LABS: INR 1.03 (0.91-1.10)
[2025-05-14] MEDS ORDERED: FURO-144 PO (19:59)
[2025-05-14] MEDS ORDERED: POTA-58 PO (19:59)
[2025-05-14] MEDS ORDERED: FUROSEMIDE 40 MG TABLET ONE (20:08)
[2025-05-14] MEDS: FUROSEMIDE 40 MG TABLET PO ONE (20:17)
[2025-05-14 20:18] VITALS: BP 174/95; TEMP 98; O2SAT 98
== END 2025-05-14 20:18 | disposition home or self-care (01) ==
LOC: ER 18:28
DX: I11.0 Hypertensive heart disease with heart failure (principal); I50.9 Heart failure, unspecified; K21.9 Gastro-esophageal reflux disease without esophagitis; E86.0 Dehydration; Z79.899 Other long term (current) drug therapy
CPT/HCPCS: 36415; 71045-TC; 80048-TC; 83880; 85025-TC; 85730-TC